=== PATIENT | male | born 1950 | race Caucasian/White ===

== ENCOUNTER 2018-04-21 22:38 | Emergency (ER) | payer MEDICARE, OTHER ==
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
[2018-04-21 23:05] LABS: BASO % 0.3 % (0-6); EOS % 6.1 % (0-6); GRAN % 66.7 % (47-80); HEMATOCRIT 39.4 % (42.0-52.0); HEMOGLOBIN 13.4 gm/dl (14.0-18.0); LYMPH % 14.6 % (16-45); MEAN CELL VOLUME 92.1 fl (81-97); MEAN CORPUSCULAR HEMOGLOBIN 31.3 pg (27-33); MEAN PLATELET VOLUME 10.2 fl (7.4-10.4); MONO % 12.3 % (0-9); PLATELET COUNT 264 K/uL (130-400); RED BLOOD COUNT 4.28 M/uL (4.40-5.70); RED CELL DISTRIBUTION WIDTH 14.2 % (11.5-14.5); WHITE BLOOD COUNT W/O DIFF 12.4 K/uL (4.2-12.2)
[2018-04-21 23:16] LABS: BLOOD UREA NITROGEN 13 mg/dL (8-23); CREATININE 0.8 mg/dL (0.7-1.2); EST GLOMERULAR FILTRATION RATE > 60 mL/min
[2018-04-21 23:17] LABS: ALCOHOL 0.049 g/dL (0-0.010); PROTHROMBIN TIME (PATIENT) 9.8 SECONDS (9.5-12.1); TOTAL PROTEIN 6.7 g/dL (6.6-8.7)
[2018-04-21 23:19] LABS: GLUCOSE,RANDOM 101 mg/dL (74-109)
[2018-04-21 23:21] LABS: ALT/SGPT 26 U/L (<41)
[2018-04-21 23:22] LABS: ALB/GLOB RATIO 1.5 (1.1-1.8); ALKALINE PHOSPHATASE 83 U/L (40-129); AST/SGOT 39 U/L (10.0-50.0)
--- NOTE | 2018-04-25 12:52 | CT SCAN REPORT ---
EXAM: CT OF THE ABDOMEN AND PELVIS WITH CONTRAST HISTORY: THIS IS A 67-YEAR-OLD MALE WITH PREVIOUS SURGERY. HEMATOMA ACROSS THE ENTIRE LOWER ABDOMEN MOSTLY ON THE RIGHT SIDE WHICH APPEARED TODAY. NO KNOWN INJURY. TECHNIQUE: Routine CT imaging of the abdomen and pelvis was obtained following intravenous administration of contrast, the amount and type of contrast are in the medical record. Comparison: None. FINDINGS: Mild fibrotic changes within the visualized lung bases. The liver, gallbladder, pancreas, spleen, and adrenals are unremarkable. The kidneys enhance and excrete contrast normally. There is a duodenal diverticulum. Scattered colonic diverticulosis present as well. The bowel is normal in caliber. No gastrointestinal inflammatory change. The appendix appears unremarkable. The bladder is unremarkable. Moderate atherosclerotic calcifications throughout. Slight aortic ectasia. No abdominal or pelvic lymphadenopathy. No free air or free fluid. There is subcutaneous edema and fat stranding throughout the anterior and right lateral abdomen correlating with the clinical history. No well defined rim enhancing fluid collection. No acute osseous abnormality. Mild scattered degenerative changes. IMPRESSION: THERE IS NONSPECIFIC SUBCUTANEOUS EDEMA AND FAT STRANDING THROUGHOUT THE RIGHT ANTERIOR AND LATERAL ABDOMINAL WALL CORRELATING WITH THE PATIENT'S CLINICAL HISTORY. THIS COULD RELATE TO HEMATOMA OR OTHER EDEMATOUS TYPE CHANGES. CELLULITIS ALSO POSSIBLE IN THE APPROPRIATE CLINICAL SETTING. NO RIM ENHANCING FLUID COLLECTION TO SUGGEST ABSCESS. NO INTRAABDOMINAL NOR PELVIC ADENOPATHY. JOB NUMBER: [id number] MTDD
== END 2018-04-22 01:00 | disposition home or self-care (01) ==
LOC: ER 22:38
DX: S30.1XXA Contusion of abdominal wall, initial encounter (principal); R10.31 Right lower quadrant pain; R05 Cough; I10 Essential (primary) hypertension; F17.210 Nicotine dependence, cigarettes, uncomplicated
CPT/HCPCS: 99283; 99284; 85025; 85610; 80053; 74177; G0480; Q9967; 80320